=== PATIENT | male | born 1940 | race Asian ===

== ENCOUNTER 2017-02-03 11:32 | Emergency (ER) | payer BC ==
[~2017-02-03] VITALS: Ht 172.7 cm; Wt 74.8 kg
--- NOTE | 2017-02-03 11:34 | NUR ---
PT BIBRA FROM PMD TO ER BED 11. C/O L SIDE RIBCAGE AND L WRIST PAIN S/P MECHANICAL FALL. DENIES KO. PLACED ON MONITOR W/ STABLE VITALS NOTED. AWAITING MD LEAL.
--- NOTE | 2017-02-03 11:52 | NUR ---
DR SHIRLEY AT BEDSIDE FOR EVAL.
--- NOTE | 2017-02-03 11:57 | NUR ---
PT TO RADIOLOGY FOR L RIB XRAY VIA WHEELCHAIR.
[2017-02-03] MEDS ORDERED: TDAP [DIPH/PERTUSSIS/TET] 0.5 ML VIAL IM ONE ×2 (12:00→12:36)
--- NOTE | 2017-02-03 13:12 | NUR ---
WOUND CARE PROVIDED. Patient discharged to home in stable condition. Written and verbal after care instructions given. Patient verbalizes understanding of instruction.
[2017-02-03 13:13] VITALS: BP 135/67
== END 2017-02-03 13:14 | disposition home or self-care (01) ==
LOC: ER 11:33
DX: S09.90XA Unspecified injury of head, initial encounter (principal); S22.32XA Fracture of one rib, left side, initial encounter for closed fracture; S00.12XA Contusion of left eyelid and periocular area, initial encounter; S80.212A Abrasion, left knee, initial encounter; W01.0XXA Fall on same level from slipping, tripping and stumbling without subsequent striking against object, initial encounter; Y93.89 Activity, other specified; Y92.89 Other specified places as the place of occurrence of the external cause; Y99.9 Unspecified external cause status
CPT/HCPCS: 71100; 90471; 90715; 99284; A4606; Z7610